=== PATIENT | male | born 1965 ===

== ENCOUNTER 2022-09-11 21:36 | Inpatient (IN) | payer BC ==
[~2022-09-11] VITALS: Ht 175.3 cm; Wt 156.4 kg
--- NOTE | 2022-09-11 23:30 | NUR ---
pt arrived to floor via ems with . notified ema hannah of arrival.
[2022-09-11] MEDS ORDERED: NEURONTIN300 MG/CAP PO (23:53)
[2022-09-11] MEDS ORDERED: OZEMPIC0.25 MG/0. SQ (23:53)
[2022-09-11] MEDS ORDERED: HCTZ 25MG TAB25 MG PO (23:53)
[2022-09-11] MEDS ORDERED: EUTHYROX175 MCG PO (23:53)
[2022-09-11] MEDS ORDERED: ZOCOR 40MG40 MG PO (23:54)
[2022-09-11] MEDS ORDERED: JANUVIA50 MG PO (23:54)
[2022-09-11] MEDS ORDERED: GLUCOTROL10 MG PO (23:54)
[2022-09-11] MEDS ORDERED: K-DUR 10 MEQ T10 MEQ PO (23:54)
[2022-09-11] MEDS ORDERED: ACTOS30 MG PO (23:54)
[2022-09-11] MEDS ORDERED: LOPRESSOR 550 MG/TAB PO (23:55)
[2022-09-11] MEDS ORDERED: COZAAR 50MG50 MG/TAB PO (23:55)
[2022-09-12] VITALS (8 sets, daily range): BP systolic 108–150; BP diastolic 50–66; PULSE 83–109; TEMP 94–100.5
[2022-09-12 00:07] LABS: SYNOVIAL FL. MONONUCLEAR 64.1 % (0-75); SYNOVIAL FLUID RBC 80000 /mm3 (0-0); SYNOVIAL FLUID WBC 734 /mm3 (200-600)
[2022-09-12 00:37] LABS: SYNOVIAL FLUID APPEARANCE CLOUDY; SYNOVIAL FLUID COLOR RED
[2022-09-12 02:00] LABS: HEMATOCRIT 37.8 % (42.0-52.0); MEAN CELL VOLUME 90 fl (80.0-100.0); MEAN CORPUSCULAR HEMOGLOBIN 31 pg (27-31); MEAN CORPUSCULAR HGB CONC 34 g/dl (33.0-37.0); MEAN PLATELET VOLUME 10.1 fl (7.4-10.4); PLATELET COUNT 91 K/mm3 (130-400); RED BLOOD COUNT 4.19 M/mm3 (4.20-5.60)
[2022-09-12 02:22] LABS: BAND 34 % (0-10); LYMPHOCYTE 7 % (20.0-51.0); NEUTROPHILS 55 % (42.0-75.2); PLATELET ESTIMATE NORMAL (NORMAL)
[2022-09-12 02:36] LABS: TSH w REFLEX 0.112 uIU/mL (0.350-4.940)
[2022-09-12 02:39] LABS: TROPONIN-I 0.061 ng/mL (0.00-0.033)
--- NOTE | 2022-09-12 02:50 | NUR ---
NOTIFED MISA RAMIREZ OF PTS TROPONIN OF 0.061. TRENDING 3 AND 6 HOUR
[2022-09-12 05:31] LABS: CALCIUM 9.1 mg/dL (8.4-10.2); POTASSIUM 3.8 mmol/L (3.5-4.5)
--- NOTE | 2022-09-12 05:45 | NUR ---
notified brielle of troponin trending downward to 0.049
--- NOTE | 2022-09-12 06:50 | NUR ---
57 yo male transferred from an outside facilty for further care and management of severe sepsis likely secondary to R lower extremity cellulitis with possible joint involvement. ht 175.3 cm wt 156.4 kg (adj wt 105 kg) SCr 1.00 with estimated CrCl >60 ml/min half life 13 hours Plan: Patient is unlikely to follow population based kinetics secondary to body habitus BMI 51.1 kg/m2. Patient received a loading dose of vancomycin 2000 mg prior to transfer; will give a supplemental loading dose of vancomycin 1000 mg for a total loading dose of 3000 mg (19.2 mg/kg); followed by a maintenance regimen of vancomycin 1250 mg q12h to target a goal trough of 15-20 mcg/ml (if joint involvement can be excluded, a reduced goal trough of 10-15 mcg/ml will be targeted). Will follow patient's renal function, micro data, and vancomycin levels as indicated to assess for any necessary changes to regimen. Thank you for this dosing consult.
--- NOTE | 2022-09-12 08:11 | NUR ---
Dr. Moyer notified of Troponin.
--- NOTE | 2022-09-12 08:45 | NUR ---
Pt. sitting up in bed. Pt. is A&OX3, assessment complete. IV to rt. ac patent. RLE red area marked and remains in outline. Pt. reports pain, gave pain meds. Pt. denies further needs, call light within reach.
--- NOTE | 2022-09-12 11:48 | NUR ---
Paged Cardiology twice to inform of consult with no return call. Will continue to attempt to get a hold of cards.
--- NOTE | 2022-09-12 13:44 | NUR ---
Tower Supervisor met with patient "Espinoza" for intake assessment/discharge planning. Patient is alert and oriented, a bit drowsy, but willing to speak stating "I'm kicking it!" He reports he lives on a farm in [place], [place], with his spouse Margy ([phone]); she left to return to home to feed the animals. He states he is independent in his ADLs and IADLs, and does have a walker, cane, and crutches for use in ambulating as he needs. He does have a CPAP machine; records indicate he does not wear. He reports he has a glucometer at home, and no other DME use. He states Dr. Arthur Calvo is his primary care physician, and he obtains his medications at [facility] in [place], [place], without difficulties. Patient reports belief of no needs at discharge, and he plans to return to home. He does accept a copy of DPOA-HC paperwork as he does not have one completed, and he will review it with his spouse to determine whether to complete. He verbalizes understanding of how to complete with two witness signatures if he so chooses. Patient states no further questions/concerns at this time. He denies belief he will benefit from any in-home and/or OP physical therapy or nursing services at this time. *Discharge to home with spouse*
[2022-09-13] VITALS (8 sets, daily range): BP systolic 123–156; BP diastolic 60–68; PULSE 83–95; TEMP 98.3–98.9
[2022-09-13 06:22] LABS: HEMOGLOBIN 11.9 g/dl (13.5-18.0); MEAN CELL VOLUME 90 fl (80.0-100.0); MEAN CORPUSCULAR HEMOGLOBIN 31 pg (27-31); MEAN CORPUSCULAR HGB CONC 34 g/dl (33.0-37.0); MEAN PLATELET VOLUME 10.8 fl (7.4-10.4); PLATELET COUNT 90 K/mm3 (130-400); RED BLOOD COUNT 3.86 M/mm3 (4.20-5.60); REDCELL DISTRIBUTION WIDTH-CV 13.8 % (11.5-14.5)
[2022-09-13 06:29] LABS: HEMATOCRIT 34.6 % (42.0-52.0)
[2022-09-13 06:53] LABS: ALBUMIN 2.7 gm/dL (3.5-5.0); BILIRUBIN,TOTAL 0.9 mg/dL (0.2-1.2); CALCIUM 9.1 mg/dL (8.4-10.2); CREATININE, serum 0.86 mg/dL (0.72-1.25); POTASSIUM 3.8 mmol/L (3.5-4.5); TOTAL PROTEIN 6.9 gm/dL (6.2-8.1)
--- NOTE | 2022-09-13 07:18 | NUR ---
Received shift report from the night nurseEileen RN
[2022-09-13 07:40] LABS: BAND 28 % (0-10); BASOPHIL 1 % (0-2); LYMPHOCYTE 5 % (20.0-51.0); NEUTROPHILS 64 % (42.0-75.2)
[2022-09-13 07:42] LABS: PLATELET ESTIMATE DECREASED (NORMAL)
[2022-09-13 07:43] LABS: POLYCHROMASIA 1+
--- NOTE | 2022-09-13 08:38 | NUR ---
Patient laying in bed with right lower extremity elevated on a pillow. Noted redness and rashes at the right lower extremity, affected area feels warm to touch. Family members at the bedside.
--- NOTE | 2022-09-13 10:39 | NUR ---
Ramírez Mathew notified of the infectious disease consult for worsening cellulitis of the RLE.
--- NOTE | 2022-09-13 16:47 | NUR ---
Telehealth visit with Dr. Singh, Infectious disease. Patient consented to visit via telehealth. present at time and introduced to Dr. Singh Connection made with no difficulties. Dr. Singh conducted visit and answered all questions.
[2022-09-14] VITALS (15 sets, daily range): BP systolic 108–145; BP diastolic 56–83; PULSE 74–95; TEMP 97.6–98.8
--- NOTE | 2022-09-14 06:24 | NUR ---
PATIENT RESTED QUIETLY THIS SHIFT. PATIENT ELEVATED LEG ON PILLOWS. PATIENT REQUESTING COUGH MEDICATION IT HURTS WHEN HE COUGHS. PATIENT REPORTS HAVING LOOSE PRODUCTIVE COUGH. PATIENT RECEIVED NO PRN MEDICATIONS THIS SHIFT.
[2022-09-14 06:50] LABS: BASO # 0.1 K/mm3 (0.0-0.2); BASO % 0.9 % (0.0-2.0); EOS # 0.1 K/mm3 (0.0-0.7); GRAN # 7.7 K/mm3 (1.4-6.5); GRAN % 79.6 % (42.2-75.2); HEMOGLOBIN 11.2 g/dl (13.5-18.0); LYMPH # 0.9 K/mm3 (1.2-3.4); LYMPH % 9.3 % (20.0-51.0); MEAN CELL VOLUME 90 fl (80.0-100.0); MEAN CORPUSCULAR HEMOGLOBIN 31 pg (27-31); MEAN CORPUSCULAR HGB CONC 35 g/dl (33.0-37.0); MEAN PLATELET VOLUME 11.5 fl (7.4-10.4); MONO # 0.7 K/mm3 (0.1-0.6); MONO % 7.5 % (1.7-9.3); PLATELET COUNT 92 K/mm3 (130-400); RED BLOOD COUNT 3.59 M/mm3 (4.20-5.60); REDCELL DISTRIBUTION WIDTH-CV 13.4 % (11.5-14.5)
[2022-09-14 06:53] LABS: ALBUMIN 2.4 gm/dL (3.5-5.0); BILIRUBIN,TOTAL 0.8 mg/dL (0.2-1.2); CALCIUM 8.8 mg/dL (8.4-10.2); CREATININE, serum 0.75 mg/dL (0.72-1.25); POTASSIUM 3.5 mmol/L (3.5-4.5); TOTAL PROTEIN 6.4 gm/dL (6.2-8.1)
[2022-09-14 07:06] LABS: HEMATOCRIT 32.4 % (42.0-52.0)
[2022-09-14 07:34] LABS: BAND 29 % (0-10); EOSINOPHIL 2 % (0-4); LYMPHOCYTE 10 % (20.0-51.0); NEUTROPHILS 54 % (42.0-75.2); PLATELET ESTIMATE DECREASED (NORMAL)
[2022-09-14 09:21] LABS: SYNOVIAL FL. MONONUCLEAR 14.2 % (0-75); SYNOVIAL FLUID RBC 366000 /mm3 (0-0); SYNOVIAL FLUID WBC 8801 /mm3 (200-600)
[2022-09-14 09:24] LABS: SYNOVIAL FLUID APPEARANCE BLOODY; SYNOVIAL FLUID COLOR RED
--- NOTE | 2022-09-14 09:30 | NUR ---
Pt. having a lot of pain and having nausea. VARSHA Romano notified, new orders recieved.
--- NOTE | 2022-09-14 14:08 | NUR ---
Associate Accountant collaborated with PT about discharge planning. At this time, patient may not be a good candidate for IPR. SW met with patient to review discharge plan. Patient still plans to return home at time of discharge and advised he is open to doing outpatient PT in [place], where he has received services a handful of times before.
--- NOTE | 2022-09-14 15:19 | NUR ---
Patient scheduled telehealth visit with Dr. Singh, Infectious Disease. Pt consents to visit. PTs present in room. Equipment set up, audio and video connections established. Visit conducted by . No technical concerns or issues.
--- NOTE | 2022-09-14 15:40 | NUR ---
PLT transfusion begun on pt. VS obtained before infusion, VSS. RN to remain in room for first 15 minutes.
--- NOTE | 2022-09-14 21:30 | NUR ---
Patient A/Ox4, VSS, head to toe assessment done, denies the need for pain medicine at this time, at bedside, able to voice needs, denies further needs, call light and personal items within reach, will continue to monitor.
[2022-09-15] VITALS (16 sets, daily range): BP systolic 113–179; BP diastolic 57–96; PULSE 73–91; TEMP 97.6–99
--- NOTE | 2022-09-15 01:44 | NUR ---
Spoke to oncall Pharmacist Deonte, he said it's okay to go ahead and give the clindamycin together with the LR.
--- NOTE | 2022-09-15 06:22 | NUR ---
Patient took his levothyroxine with sips of water, NPO maintained, denies further need at this time, will report off to dayshift nurse.
[2022-09-15 07:06] LABS: HEMATOCRIT 30.3 % (42.0-52.0); HEMOGLOBIN 10.5 g/dl (13.5-18.0); MEAN CELL VOLUME 90 fl (80.0-100.0); MEAN CORPUSCULAR HEMOGLOBIN 31 pg (27-31); MEAN CORPUSCULAR HGB CONC 35 g/dl (33.0-37.0); MEAN PLATELET VOLUME 10.5 fl (7.4-10.4); PLATELET COUNT 111 K/mm3 (130-400); RED BLOOD COUNT 3.37 M/mm3 (4.20-5.60); REDCELL DISTRIBUTION WIDTH-CV 13.6 % (11.5-14.5)
--- NOTE | 2022-09-15 07:11 | NUR ---
Received shift report from the night nurse, TIMOTHY Goff.
[2022-09-15 07:16] LABS: ALBUMIN 2.3 gm/dL (3.5-5.0); BILIRUBIN,TOTAL 0.6 mg/dL (0.2-1.2); C-REACTIVE PROTEIN 20.11 mg/dL (0.00-0.50); CALCIUM 8.7 mg/dL (8.4-10.2); CREATININE, serum 0.75 mg/dL (0.72-1.25); MAGNESIUM 1.8 mg/dL (1.6-2.6); POTASSIUM 3.3 mmol/L (3.5-4.5); TOTAL PROTEIN 6.3 gm/dL (6.2-8.1)
[2022-09-15 08:02] LABS: PATHOLOGY DIFF REVIEW OK +
[2022-09-15 08:11] LABS: BAND 29 % (0-10); BASOPHIL 1 % (0-2); EOSINOPHIL 5 % (0-4); LYMPHOCYTE 9 % (20.0-51.0); NEUTROPHILS 53 % (42.0-75.2)
[2022-09-15 08:12] LABS: PLATELET ESTIMATE DECREASED (NORMAL)
--- NOTE | 2022-09-15 09:15 | NUR ---
Patient awake in bed, family member at the bedside. RLE reddned and sipping with clear drainage . Patient has RLE elevated on a pillow. LUNG CTA. Patient states he had his breathing treament this am and doing good and denies of shortness of breath. Patient reminded of NPO status for upcoming surgery this afternoon at 1500. Patient has no needs at this time.
--- NOTE | 2022-09-15 14:00 | NUR ---
Patient scheduled telehealth visit with Dr. Singh, Infectious Disease. Pt consents to visit. Equipment set up, audio and video connections established. Visit conducted by MD. No technical concerns or issues. Patients mother present in room.
--- NOTE | 2022-09-15 15:30 | NUR ---
Patient left the unit via bed for OR for procedure at 1531.
--- NOTE | 2022-09-15 19:13 | NUR ---
Patient returned to the unit from PACU at 1825. Patient awake , elder wrap dressing at RLE intact. Ice applied to the area. Patient incontinent of stool and hygiene performed. Family member at the bedside. Clear liquid diet offered and tolerating it well. Call pack within reach.
--- NOTE | 2022-09-15 22:40 | NUR ---
ATTEMPTED TO CONTACT MISA RAMIREZ APRN TO NOTIFY OF ELEVATED BLOOD PRESSURE 179/78. NO ANSWER.
--- NOTE | 2022-09-15 22:45 | NUR ---
SHIFT REPORT FROM JUSTINE AGUIRRE. PATIENT IN BED ON ROOM ENTRY. AT BEDSIDE. PATIENT C/O COMPLAINING OF INCREASING PAIN AT SHIFT CHANGE AND JUSTINE AGUIRRE GAVE PRN DILAUDID. PATIENT STATES THIS DID NOT HELP AND WAS FOLLOWED BY PRN ULTRAM. AGAIN THIS DID NOT HELP MUCH AND WAS FOLLOWED BY ANOTHER DOSE OF DILAUDID AND A PRN PHENERGAN TAB. PATIENT THEN STATES HE WAS MORE COMFORTABLE AND WAS DRIFTING TO SLEEP DURING CONVERSATION. PRN TYLENOL WAS GIVEN AT THIS POINT FOR ADDITIONAL PAIN COVERAGE. RLE IS ARIEL WRAPPED, PEDAL PULSES 2+. PATIENT TOLERATED ADA DIET FOR DINNER. DENIES ADDITIONAL NEEDS. CALL LIGHT IN REACH.
[2022-09-16] VITALS (14 sets, daily range): BP systolic 141–174; BP diastolic 62–79; PULSE 68–93; TEMP 98.2–99.2
[2022-09-16 07:03] LABS: HEMOGLOBIN 10.7 g/dl (13.5-18.0); MEAN CELL VOLUME 90 fl (80.0-100.0); MEAN CORPUSCULAR HEMOGLOBIN 31 pg (27-31); MEAN CORPUSCULAR HGB CONC 34 g/dl (33.0-37.0); MEAN PLATELET VOLUME 10.4 fl (7.4-10.4); PLATELET COUNT 153 K/mm3 (130-400); RED BLOOD COUNT 3.48 M/mm3 (4.20-5.60)
[2022-09-16 07:05] LABS: HEMATOCRIT 31.4 % (42.0-52.0)
[2022-09-16 07:10] LABS: CALCIUM 8.6 mg/dL (8.4-10.2); CREATININE, serum 0.7 mg/dL (0.72-1.25); POTASSIUM 3.6 mmol/L (3.5-4.5)
[2022-09-16 07:45] LABS: BAND 17 % (0-10); EOSINOPHIL 2 % (0-4); LYMPHOCYTE 6 % (20.0-51.0); NEUTROPHILS 72 % (42.0-75.2)
[2022-09-16 07:46] LABS: PLATELET ESTIMATE NORMAL (NORMAL)
--- NOTE | 2022-09-16 09:45 | NUR ---
PT UP TO DOORWAY WITH THERAPY. PT IMPULSIVE AND RESISTIVE TO WORK WITH THERAPY. PLAN ON DISCHARGE HOME WITH OUTPT ABX RECC BY ID. ASSISTING PT IN ROOM WITH NEEDS AND BR. ORTHO PLAN ON DISCHARGE HOME WITH PICC LINE TOMMORROW.
--- NOTE | 2022-09-16 13:04 | NUR ---
Floor Renovator met with patient to discuss discharge planning. , Nhi is at bedside. Patient will need six weeks of IV antibiotics, final recommendations pending. Patient is also [facility], [place]. Patient and want to return home with outpatient IV antibiotics at the hospital and outpatient PT. Nhi advised patient was able to walk to the door and she feels comfortable with the level of care he requires. Nhi also stated she can get patient to the hospital daily, even twice a day if needed. MALIK updated the team, the contacted [facility] and spoke to the outpatient services department. SW faxed clinicals and will follow up with final medication recommendations.
--- NOTE | 2022-09-16 13:44 | NUR ---
Trailer Body Assembler received a phone call from patient's , wanting a referral sent to [facility]. SW contacted Lyn at and faxed referral. SW updated patient's RN.
--- NOTE | 2022-09-16 15:28 | NUR ---
Patient scheduled telehealth visit with Dr. Singh, Infectious Disease. Pt consents to visit. Equipment set up, audio and video connections established. Visit conducted by MD. No technical concerns or issues. Patients present in room.
--- NOTE | 2022-09-16 21:04 | NUR ---
SHIFT REPORT FROM MARGAUX AGUIRRE. PATIENT IN BED ON ROOM ENTRY. AT BEDSIDE. C/O INCREASED PAIN AND REQUEST DILAUDID, DISCUSSED WITH PATIENT THE NEED TO STAY ON PO PAIN CONTROL IF POSSIBLE AND PATIENT IN AGREEANCE. ADDED TYLENOL TO BRIDGE PAIN CONTROL BETWEEN ULTRAM. HS MEDS PER EMAR. BLOOD SUGAR 252 AND INSULIN PER SSI. BULKY DRESSING TO R LEG CDI, TO BE CHANGED TOMORROW. PICC WITH IVF INFUSING. STATES THEY HAVE BEEN GETTING UP TO SIDE OF BED TO VOID WITHOUT ISSUE. DENIES ADDITIONAL NEEDS AT THIS TIME. NEXT ULTRAM DUE AT 2200.
[2022-09-17] VITALS (7 sets, daily range): BP systolic 133–155; BP diastolic 62–75; PULSE 76–87; TEMP 97.9–98.3
[2022-09-17 06:13] LABS: HEMOGLOBIN 10.2 g/dl (13.5-18.0); MEAN CORPUSCULAR HEMOGLOBIN 31 pg (27-31); MEAN CORPUSCULAR HGB CONC 32 g/dl (33.0-37.0); MEAN PLATELET VOLUME 10.1 fl (7.4-10.4); PLATELET COUNT 169 K/mm3 (130-400); RED BLOOD COUNT 3.34 M/mm3 (4.20-5.60)
[2022-09-17 06:15] LABS: HEMATOCRIT 31.8 % (42.0-52.0); MEAN CELL VOLUME 95 fl (80.0-100.0)
[2022-09-17 06:24] LABS: CALCIUM 8.3 mg/dL (8.4-10.2); CREATININE, serum 0.7 mg/dL (0.72-1.25); POTASSIUM 3.6 mmol/L (3.5-4.5)
[2022-09-17 07:11] LABS: BAND 9 % (0-10); LYMPHOCYTE 11 % (20.0-51.0); METAMYELOCYTE 2 % (0-0); NEUTROPHILS 73 % (42.0-75.2); PLATELET ESTIMATE NORMAL (NORMAL)
--- NOTE | 2022-09-17 08:20 | NUR ---
Pt. sitting up at bedside. PT has just finished working with pt. Pt. ambulated out the door and back to bed. Dressing change completed. Aquacell applied to rt. knee incision. RLE dressing changed, vasaline gauze, kyrlex, and elder wrap. Pt. tolerated well. PICC to rt. upperarm patent. Pt. reports pain at a 4 on pain scale, giving pain meds per orders. Pt. denies further needs, call light within reach.
[2022-09-17] MEDS ORDERED: ROCEPHIN 2GM VIAL21 IJ (09:07)
[2022-09-17] MEDS ORDERED: CLEOCIN IJ (09:08)
[2022-09-17] MEDS ORDERED: LASIX 40MG TABL40 MG PO (09:13)
[2022-09-17] MEDS ORDERED: ULTRAM 50MG TAB50 MG PO (09:19)
[2022-09-17] MEDS ORDERED: ASPI325T6 PO (09:19)
--- NOTE | 2022-09-17 15:15 | NUR ---
Manager Advertising received a message from Lyn at [facility] which advised patient does not have swing bed benefits so they would not be able to accept. MALIK met with patient and his , Nhi to review discharge plan. Both are disappointed swing bed is not a covered service. Patient is going to require IV antibiotics, three times daily, for six weeks. Because of this, patient and would like to set up the antibiotics at home as going to the hospital three times daily is not sustainable for them. 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 Patient is agreeable to have referral sent to [facility] to order antibiotics. Nhi also advised they would be open to Home Health and are familiar with [facility] out of [place] and would like to use them. MALIK contacted Cecy at [facility] who advised they cover that area. MALIK faxed referral for review. Cecy advised they have ordered the medications and they will be delivered overnight tonight. Cecy plans to visit the hospital this afternoon to provide education and has already spoken to by phone. Cecy advised once patient's deductible is met, his medications will be completely covered. MALIK contacted [facility] and faxed referral. Unfortunately they cannot have a nurse visit until Tuesday, however provided a phone number for patient's to call if she has questions over the weekend. MALIK was going to attempt to secure a different agency with RN coverage this weekend, however ALISSON Posadas contacted [facility] internal medicine specialist and [facility] is the only in network HH agency available to patient. Tracy at [facility] advised they can accept and will have a RN out on Tuesday. MALIK met with patient and his to review discharge plan. MALIK advised that [facility] cannot visit until Tuesday, but provided tension machine operator number that connects them with clinical bindery supervisor, Debbie. Nhi feels comfortable with this plan and feels they can manage this weekend until Tuesday. Bedside RN to provide teaching for next dosage as well as teaching to be done by Cecy with [facility] this afternoon. Patient to have HH nursing and PT/OT to start next week. Discharge Plan: Home with [facility] and IV antibiotics
--- NOTE | 2022-09-17 16:54 | NUR ---
Pt. ready for discharge. PICC line specialist has reviewed giving the home meds with the pt's . This nurse witnessed the pt. pushing IV medications with this nurse supervising to ensure proper administration. Pt. questions answered. Cap to PICC line changed by this nurse. Reviewed discharge paperwork with the pt. and his . Pt. and deny further questions. Will call when ready to be escorted out.
--- NOTE | 2022-09-17 17:22 | NUR ---
Pt. escorted out at this time.
== END 2022-09-17 17:22 | disposition home health service (06) | DRG 485 ==
LOC: MEDICAL 21:36 → SURG 23:18
PROVIDERS: Internal Medicine; Nurse Practitioner Family; Orthopaedic Surgery; Physician Assistant; ADMIT Hospitalist
PROC: 0SPC09Z Removal of Liner from Right Knee Joint, Open Approach (ICD-10-PCS; 2022-09-15)
PROC: 0SUV09Z Supplement Right Knee Joint, Tibial Surface with Liner, Open Approach (ICD-10-PCS; 2022-09-15)
PROC: 0SBC0ZZ Excision of Right Knee Joint, Open Approach (ICD-10-PCS; principal; 2022-09-15 15:00)
PROC: 02HV33Z Insertion of Infusion Device into Superior Vena Cava, Percutaneous Approach (ICD-10-PCS; 2022-09-16)
PROC: 0S9C3ZX Drainage of Right Knee Joint, Percutaneous Approach, Diagnostic (ICD-10-PCS; 2022-09-17)
DX: T84.53XA Infection and inflammatory reaction due to internal right knee prosthesis, initial encounter (principal); A40.0 Sepsis due to streptococcus, group A; J96.01 Acute respiratory failure with hypoxia; R65.20 Severe sepsis without septic shock; G93.41 Metabolic encephalopathy; L03.115 Cellulitis of right lower limb; E87.20 Acidosis, unspecified; I24.8 Other forms of acute ischemic heart disease; E66.2 Morbid (severe) obesity with alveolar hypoventilation; E87.1 Hypo-osmolality and hyponatremia; Z68.43 Body mass index [BMI] 50.0-59.9, adult; I10 Essential (primary) hypertension; E78.5 Hyperlipidemia, unspecified; E03.9 Hypothyroidism, unspecified; L28.0 Lichen simplex chronicus; D69.6 Thrombocytopenia, unspecified; Z96.641 Presence of right artificial hip joint; M19.90 Unspecified osteoarthritis, unspecified site; I25.10 Atherosclerotic heart disease of native coronary artery without angina pectoris; G89.29 Other chronic pain; M25.561 Pain in right knee; Y83.8 Other surgical procedures as the cause of abnormal reaction of the patient, or of later complication, without mention of misadventure at the time of the procedure; E87.6 Hypokalemia; E11.65 Type 2 diabetes mellitus with hyperglycemia; D64.9 Anemia, unspecified; Z90.49 Acquired absence of other specified parts of digestive tract; Z79.890 Hormone replacement therapy; Z88.0 Allergy status to penicillin; Z88.7 Allergy status to serum and vaccine; Z88.6 Allergy status to analgesic agent; Z91.030 Bee allergy status; Z91.199 Patient's noncompliance with other medical treatment and regimen due to unspecified reason; Z23 Encounter for immunization; Y92.89 Other specified places as the place of occurrence of the external cause
CPT/HCPCS: C1751; C1776; J0360; J0690; J0692; J0696; J1170; J1815; J2185; J2250; J2405; J2704; J3010; J3370; J3480; J7030; J7050; J7120; P9035